=== PATIENT | male | born 1985 ===

== ENCOUNTER 2020-01-04 08:40 | Day surgery (SDC) | payer OTHER ==
[2020-01-04] MEDS ORDERED: COLACE100 MG PO (12:50)
[2020-01-04] MEDS ORDERED: PERCOCET 5-3251 EACH PO (12:50)
== END 2020-01-04 20:05 | disposition home or self-care (01) ==
LOC: CIR.AMB 08:40
PROVIDERS: ATTEND Surgery
DX: K60.1 Chronic anal fissure (principal); Z20.828 Contact with and (suspected) exposure to other viral communicable diseases